=== PATIENT | male | born 1995 | race African-American/Black ===

== ENCOUNTER 2017-02-08 10:06 | Emergency (ER) | payer OTHER ==
[~2017-02-08] VITALS: Ht 170.2 cm; Wt 61.0 kg
[~2017-02-08 10:06] MED LIST: NO HOME MEDS
[2017-02-08] MEDS ORDERED: NAPROSYN250 MG PO (11:44)
[2017-02-08 11:48] VITALS: BP 122/67
== END 2017-02-08 11:56 | disposition home or self-care (01) | DRG 563 ==
LOC: ED 10:06
DX: S93.402A Sprain of unspecified ligament of left ankle, initial encounter (principal); X50.1XXA Overexertion from prolonged static or awkward postures, initial encounter; Y93.67 Activity, basketball; Y92.830 Public park as the place of occurrence of the external cause

== ENCOUNTER 2019-03-22 15:07 | Emergency (ER) | payer SELFPAY ==
[~2019-03-22] VITALS: Ht 170.2 cm; Wt 61.0 kg
[~2019-03-22 15:07] MED LIST changes: +NAPROSYN250 MG PO
[2019-03-22 17:20] VITALS: BP 135/77
== END 2019-03-22 17:20 | disposition home or self-care (01) | DRG 563 ==
LOC: ED 15:07
DX: S93.401A Sprain of unspecified ligament of right ankle, initial encounter (principal); X50.1XXA Overexertion from prolonged static or awkward postures, initial encounter; Y93.67 Activity, basketball; Y92.219 Unspecified school as the place of occurrence of the external cause

== ENCOUNTER 2023-07-12 08:18 | Emergency (ER) | payer SELFPAY ==
[~2023-07-12] VITALS: Ht 170.2 cm; Wt 63.5 kg
[2023-07-12 08:23] VITALS: BP 112/72
[2023-07-12 09:02] VITALS: BP 98/67
[2023-07-12] MEDS ORDERED: IBUPROFEN600 MG PO (10:22)
[2023-07-12] MEDS ORDERED: METHOCARBAMOL500 MG PO (10:22)
[2023-07-12 10:29] VITALS: BP 112/72
== END 2023-07-12 10:37 | disposition home or self-care (01) | DRG 558 ==
LOC: ED 08:18
DX: M75.21 Bicipital tendinitis, right shoulder (principal)

== ENCOUNTER 2023-07-17 13:03 | Emergency (ER) | payer SELFPAY ==
[~2023-07-17] VITALS: Ht 170.2 cm; Wt 61.0 kg
[~2023-07-17 13:03] MED LIST changes: +IBUPROFEN600 MG PO; +METHOCARBAMOL500 MG PO
[2023-07-17] MEDS ORDERED: NAPROXEN500 MG PO (14:00)
[2023-07-17 14:20] VITALS: BP 108/69
[2023-07-17 14:22] VITALS: BP 108/69
== END 2023-07-17 14:31 | disposition home or self-care (01) | DRG 563 ==
LOC: ED 13:03
DX: S43.401A Unspecified sprain of right shoulder joint, initial encounter (principal); X58.XXXA Exposure to other specified factors, initial encounter; T39.396A Underdosing of other nonsteroidal anti-inflammatory drugs [NSAID], initial encounter; T42.8X6A Underdosing of antiparkinsonism drugs and other central muscle-tone depressants, initial encounter; Z91.128 Patient's intentional underdosing of medication regimen for other reason

== ENCOUNTER 2024-07-01 21:23 | Emergency (ER) | payer SELFPAY ==
[~2024-07-01] VITALS: Ht 170.2 cm; Wt 68.0 kg
[~2024-07-01 21:23] MED LIST changes: +NAPROXEN500 MG PO
[2024-07-01] MEDS ORDERED: IBUPROFEN 800 MG/TAB PO ONE (22:20)
[2024-07-01] MEDS ORDERED: ACETAMINOPHEN 500 MG TAB PO ONE (22:20)
[2024-07-01 23:06] VITALS: BP 93/66
== END 2024-07-01 23:06 | disposition left against medical advice (07) | DRG 556 ==
LOC: ED 21:23
DX: M79.642 Pain in left hand (principal); Z53.29 Procedure and treatment not carried out because of patient's decision for other reasons

== ENCOUNTER 2025-02-01 04:15 | Emergency (ER) | payer SELFPAY ==
[~2025-02-01] VITALS: Ht 167.6 cm; Wt 64.0 kg
[~2025-02-01 04:15] MED LIST changes: +PENICILLIN V P500 MG PO
[2025-02-01] MEDS ORDERED: NAPROXEN375 MG PO (04:32)
[2025-02-01] MEDS ORDERED: TRAMADOL HYDROC50 M1 PO (04:32)
[2025-02-01] MEDS ORDERED: PENICILLIN G BENZATHINE 1.2 MU/2 ML SYR IM ONE (04:35)
[2025-02-01] MEDS ORDERED: NAPROXEN 250 MG/TAB PO ONE (04:35)
[2025-02-01] MEDS ORDERED: Acetaminophen 300 MG/Codeine 30 MG/COMBO PO ONE (04:35)
[2025-02-01 04:54] VITALS: BP 122/86
== END 2025-02-01 04:54 | disposition home or self-care (01) | DRG 159 ==
LOC: ED 04:15
DX: K04.7 Periapical abscess without sinus (principal); K02.9 Dental caries, unspecified; K01.1 Impacted teeth
CPT/HCPCS: J0561